=== PATIENT | male | born 1965 | race Caucasian/White ===

== ENCOUNTER 2020-07-11 10:38 | Emergency (ER) | payer BC ==
[2020-07-11] MEDS ORDERED: ASPIRIN E.C. 8181 MG PO (10:52)
[2020-07-11 11:25] LABS: EOS # 0.3 (0.04-0.40); EOS % 2.6 % (0.0-4.0); HEMATOCRIT 35.1 % (42.0-52.0); HEMOGLOBIN 11.1 g/dL (13.5-18.0); LYMPH# 2.9 (1.50-4.00); MEAN CELL VOLUME 104 fl (78-100); MEAN CORPUSCULAR HEMOGLOBIN 33 pg (27-31); MEAN CORPUSCULAR HGB CONC 32 g/dL (33-37); MEAN PLATELET VOLUME 9.1 fl (7.4-10.4); MONO # 0.7 (0.20-0.80); NEU # 5.8 (1.40-6.50); PLATELET COUNT 335 K/mm3 (130-400); RED BLOOD COUNT 3.39 M/mm3 (4.20-5.60); RED CELL DISTRIBUTION WIDTH 14.5 % (11.5-14.5); WHITE BLOOD COUNT 9.8 K/mm3 (4.8-10.8)
[2020-07-11 11:34] LABS: POTASSIUM 4.5 mmol/L (3.5-5.1); SODIUM 139 mmol/L (136-145)
[2020-07-11 11:36] LABS: CALCIUM 8.8 mg/dL (8.3-10.5)
[2020-07-11 11:37] LABS: GLUCOSE 116 mg/dL (75-110); TOTAL PROTEIN 6.3 g/dL (6.4-8.3)
[2020-07-11 11:38] LABS: CARBON DIOXIDE 25 mmol/L (22-29)
[2020-07-11 11:39] LABS: TOTAL BILIRUBIN 0.2 mg/dL (0.2-1.2)
[2020-07-11 11:42] LABS: AST-SGOT 14 U/L (5-34)
[2020-07-11 11:43] LABS: ALT/SGPT 20 U/L (0-55)
[2020-07-11 11:44] LABS: LIPASE 17 U/L (8-78)
[2020-07-11 11:51] LABS: TROPONIN-I < 0.03 ng/mL (<0.030)
[2020-07-11 12:27] LABS: ERYTHROCYTE SEDIMENTATION RATE 12 mm/hr (0-20)
[2020-07-11 12:52] LABS: URINE APPEARANCE CLEAR; URINE BILIRUBIN NEGATIVE (NEGATIVE); URINE BLOOD NEGATIVE (NEGATIVE); URINE COLOR YELLOW; URINE GLUCOSE NEGATIVE (NEGATIVE); URINE KETONE NEGATIVE (NEGATIVE); URINE LEUKOCYTE ESTERASE NEGATIVE (NEGATIVE); URINE NITRATE NEGATIVE (NEGATIVE); URINE PROTEIN(semi-quant) TRACE mg/dL (NEGATIVE); URINE UROBILINOGEN NORMAL (NORMAL); URINE WBC 0-1 /hpf (0-3)
[2020-07-11] MEDS ORDERED: ZOFRAN ODT4 MG PO (13:02)
[2020-07-11 13:14] VITALS: BP 121/94
== END 2020-07-11 13:24 | disposition home or self-care (01) ==
LOC: ED 10:38
PROVIDERS: Physician Assistant
DX: R10.32 Left lower quadrant pain (principal); R11.2 Nausea with vomiting, unspecified; R53.81 Other malaise; I25.2 Old myocardial infarction; Z79.02 Long term (current) use of antithrombotics/antiplatelets; Z79.82 Long term (current) use of aspirin

== ENCOUNTER → 2022-01-04 | Outpatient (CLI) | payer BC ==
[~2022-01-04] MED LIST: ASPIRIN E.C. 8181 MG PO; ZOFRAN ODT4 MG PO
[2022-01-04 11:20] LABS: BASO # 0.01 K/mm3 (0.02-0.10); EOS # 0.09 K/mm3 (0.04-0.40); EOS % 0.8 % (0.0-4.0); HEMOGLOBIN 12.5 g/dL (13.5-18.0); LYMPH# 2.04 K/mm3 (1.50-4.00); MEAN CELL VOLUME 103 fl (78-100); MEAN CORPUSCULAR HEMOGLOBIN 35 pg (27-31); MEAN CORPUSCULAR HGB CONC 34 g/dL (33-37); MEAN PLATELET VOLUME 9.5 fl (7.4-10.4); MONO # 0.81 K/mm3 (0.20-0.80); NEU # 8.93 K/mm3 (1.40-6.50); PLATELET COUNT 398 K/mm3 (130-400); RED BLOOD COUNT 3.58 M/mm3 (4.20-5.60); WHITE BLOOD COUNT 11.9 K/mm3 (4.8-10.8)
[2022-01-04 11:25] LABS: ALBUMIN 4.3 g/dL (3.5-5.0)
[2022-01-04 11:26] LABS: POTASSIUM 4.4 mmol/L (3.5-5.1)
[2022-01-04 11:27] LABS: CALCIUM 9.3 mg/dL (8.3-10.5); PROTHROMBIN TIME 9.4 SECONDS (9.0-12.0)
[2022-01-04 11:28] LABS: TOTAL PROTEIN 7.4 g/dL (6.4-8.3)
[2022-01-04 11:30] LABS: TOTAL BILIRUBIN 0.6 mg/dL (0.2-1.2)
== END ==
LOC: LAB 10:57
PROVIDERS: Nurse Practitioner Family
DX: S30.1XXA Contusion of abdominal wall, initial encounter (principal); M89.9 Disorder of bone, unspecified; R23.3 Spontaneous ecchymoses

== ENCOUNTER → 2023-04-08 | Outpatient (CLI) | payer BC | LOC: RAD 15:10 | DX: M54.50 Low back pain, unspecified (principal) ==